=== PATIENT | male | born 1955 | race American Indian/Alaskan Native ===

== ENCOUNTER 2016-08-07 23:12 | Emergency (ER) | payer BC ==
[2016-08-07 23:12] VITALS: BMI 24.4
[2016-08-07 23:28] VITALS: BP 147/85; PULSE 86; RESP 18; TEMP 98.1; O2SAT 99
--- NOTE | 2016-08-08 00:57 | C.PDOC ---
History Of Present Illness Patient is a 60 year old male who presents to the ER with a complaint of left knee pain. 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 Denies any other injury or complaint. Time Seen by Provider: 08/07/16 23:54 Chief Complaint (Nursing): Lower Extremity Problem/Injury History Per: Patient History/Exam Limitations: no limitations Onset/Duration Of Symptoms: Hrs Current Symptoms Are (Timing): Still Present - Knee Description Of Injury: Other (Left, while pushing bleachers) Past Medical History Reviewed: Historical Data, Nursing Documentation, Vital Signs Vital Signs: Last Vital Signs Temp 98.1 F 08/07/16 23:21 Pulse 86 08/07/16 23:21 Resp 18 08/07/16 23:21 BP 147/85 08/07/16 23:21 Pulse Ox 99 08/08/16 02:11 - Medical History PMH: Arthritis (knee), HTN, Hypercholesterolemia Surgical History: No Surg Hx - [facility] Procedures HEMORRHOIDECTOMY (10/17/13) Family History: States: No Known Family Hx - Social History Hx Alcohol Use: No Hx Substance Use: No - Immunization History Hx Tetanus Toxoid Vaccination: No Hx Influenza Vaccination: No Hx Pneumococcal Vaccination: No Review Of Systems Except As Marked, All Systems Reviewed And Found Negative. Musculoskeletal: Positive for: Leg Pain (Left knee) Physical Exam - Physical Exam Appears: Well, Non-toxic Skin: Normal Color, Warm, Dry Head: Atraumatic, Normacephalic Oral Mucosa: Moist Extremity: Tenderness (Lateral to patella of left knee) Neurological/Psych: Oriented x3, Normal Speech, Normal Cognition ED Course And Treatment O2 Sat by Pulse Oximetry: 99 Progress Note: X-ray of left knee ordered. Motrin administered. X-ray results showed postive for DJD, no acute fracture. Knee brace applied by CP and checked by me. Patient was feeling better, discharged home and ordered to follow up with ortho. Disposition - Disposition Referrals: Soy Pichardo MD [Staff Provider] - Disposition: HOME/ ROUTINE Disposition Time: 00:53 Condition: STABLE Additional Instructions: Follow up with PMD and Orthopedist within 1-2 days. return to ED if feel worse. Prescriptions: Ibuprofen [Motrin Tab] 400 mg PO Q8 #30 tab Instructions: Knee Pain (ED) - Clinical Impression Clinical Impression: Knee pain, acute - Scribe Statement The provider has reviewed the documentation as recorded by the Scribe Cristiano Yung All medical record entries made by the Cynibe were at my direction and personally dictated by me. I have reviewed the chart and agree that the record accurately reflects my personal performance of the history, physical exam, medical decision making, and the department course for this patient. I have also personally directed, reviewed, and agree with the discharge instructions and disposition.
--- NOTE | 2016-08-08 08:36 | RAD ---
PROCEDURE: Left Knee Radiographs. HISTORY: COMPARISON: None available. FINDINGS: BONES: Degenerative changes. Suprapatellar enthesophyte. No acute displaced fracture. Irregularity about the tibial tubercle appears chronic. JOINTS: No dislocation. Tricompartmental joint space narrowing. JOINT EFFUSION: No significant joint effusion. OTHER FINDINGS: Dense vascular calcifications. IMPRESSION: No acute displaced fracture, dislocation, or significant joint effusion identified. If symptoms persist, or if there is continued clinical concern, x-ray follow-up in 7-10 days should be considered. Degenerative changes as above.
== END 2016-08-08 01:02 | disposition home or self-care (01) ==
LOC: C.ER 23:12
DX: M25.562 Pain in left knee (principal); E78.00 Pure hypercholesterolemia, unspecified; I10 Essential (primary) hypertension